=== PATIENT | female | born 2000 | race Caucasian/White ===

== ENCOUNTER 2022-05-05 15:41 | Outpatient (CLI) | payer OTHER, SELFPAY ==
--- NOTE | ~2022-05-05 | XR_ITS ---
XR lumbar spine 2-3V DATE: 05/05/2022 16:16 INDICATION: Low back pain TECHNIQUE: AP, lateral, coned lateral lumbosacral views COMPARISON: None FINDINGS: Normal alignment. No fracture or bone destruction or spondylolisthesis. The included lower thoracic and lumbar pedicles are intact. Lumbar and upper sacral interspaces appear well preserved. T he sacroiliac joints are intact. IMPRESSION: No significant abnormality Reviewed, dictated and finalized at location A. IMPRESSION: No significant abnormality
== END 2022-05-05 15:42 | disposition home or self-care (01) ==
PROVIDERS: PCP Family Medicine; Visit Provider Family Medicine
DX: M54.50 Low back pain, unspecified (principal)
CPT/HCPCS: 72100

== ENCOUNTER 2023-02-19 23:37 | Emergency (ER) | payer OTHER, SELFPAY ==
[2023-02-19 23:45] VITALS: BP 124/86; PULSE 78; RESP 18; TEMP 36.6; O2SAT 99
--- NOTE | 2023-02-19 23:54 | ED.DENTAL ---
HPI - Dental/Oral General Chief complaint: Dental/Oral Stated complaint: Toothache Time Seen by Provider: 02/19/23 23:52 Source: patient Mode of arrival: ambulatory Limitations: no limitations History of Present Illness HPI Narrative: Patient is a 22-year-old female with left upper mandible pain. Pain is of the left upper tooth that is cracked recently. MD Complaint: tooth pain Onset (ago): day(s) Duration: constant Severity: moderate Severity scale (1-10): 5 Relieving factors: nothing Exacerbating factors: chewing, cold, heat and drinking fluids Treatment prior to arrival: none Related Data Allergies Allergy/AdvReac Type Severity Reaction Status Date / Time No Known Allergies Allergy Verified 02/20/23 00:11 Review of Systems Review of Systems: All systems reviewed & are unremarkable except as noted in HPI and below Constitutional: Constitutional: Reports no additional constitutional complaints Eyes: Eyes: Reports no additional eye complaints ENT: Reports system reviewed and no additional complaints, except as documented Cardiovascular: Cardiovascular: Reports no additional cardiovascular complaints Respiratory: Respiratory: Reports no additional respiratory complaints Gastrointestinal: Gastrointestinal: Reports no additional gastrointestinal complaints Genitourinary: Genitourinary: Reports no additional female genitourinary complaints Musculoskeletal: Musculoskeletal: Reports no additional musculoskeletal complaints Integumentary/Breasts: Skin/Breast: Reports system reviewed and no additional complaints, except as docu Neurologic: Reports system reviewed and no additional complaints, except as documented Psychiatric: Psychiatric: Reports no additional psychiatric complaints Endocrine: Endocrine: Reports no additional endocrine complaints Hematologic/Lymphatic: Hematologic/Lymphatic: Reports no additional hematologic/lymphatic complaints Allergic/Immunologic: Allergic/Immunologic: Reports no additional allergic/immunologic complaints Exam Const: General: healthy appearing Nutritional Appearance: well nourished Orientation/consciousness: patient oriented x3 HENMT: Head: normal to inspection Ears: external ears normal Face/Nose/Sinus: Normal external nose present Other: Left upper molar 2nd to last has a crack mcc through the tooth with exposed dentition Eyes: Conjunctivae: conjunctivae normal Pupils: Equal, round and reactive pupils present EOM: EOMs intact bilaterally Neck: Neck: normal visual inspection Chest: Chest palpation & inspection: normal inspection of the chest Resp: Effort & Inspection: normal respiratory effort Auscultation: clear to auscultation bilaterally Cardio: Rate: regular rate Rhythm: regular rhythm Heart sounds: no murmurs GI: Inspection: non-distended Auscultation: normal bowel sounds : General: Yes bladder normal to palpation Back/Spine/Pelvis: Back: no CVA tenderness Skin: General skin exam: normal color Rashes: no rashes Wounds: no wounds Neuro: General: patient oriented x3, moves all extremities and no meningeal signs Extrem: General: normal to inspection Psych: Mental Status: mental status grossly normal Discharge Plan Discharge Clinical Impression: Mandible pain Patient Disposition: Home, Self-Care Condition: Stable Instructions: Antibiotic Form, Toothache (ED) Additional Instructions: please see a dentist as soon as possible Prescriptions: New amoxicillin 500 mg capsule 500 mg PO TID 10 Days Qty: 30 0RF indomethacin 25 mg capsule 25 mg PO TID PRN (Reason: pain) Qty: 20 0RF Rx Instructions: administer with food or milk Follow-up/Referrals: Jevon Stahl MD [Primary Care Provider] - Time of Disposition: 00:02
[2023-02-20] MEDS: AMOXICILLIN/CLAVULANATE K 875-125 MG TAB 1 TABLET PO (00:16)
[2023-02-20] MEDS: KETOROLAC (*BKC) 60 MG/2 ML VIAL IM (00:16)
[2023-02-20 00:34] VITALS: BP 120/74; PULSE 74; RESP 18; TEMP 36.6; O2SAT 98
== END 2023-02-20 00:40 | disposition home or self-care (01) ==
PROVIDERS: Emergency Provider Emergency Medicine; PCP Family Medicine
DX: R68.84 Jaw pain (principal)
CPT/HCPCS: 96372; 99283; A9270; J1885

== ENCOUNTER 2023-12-13 09:23 | Emergency (ER) | payer OTHER, SELFPAY ==
--- NOTE | ~2023-12-13 | CT_ITS ---
EXAMINATION: CT brain wo con DATE: 12/13/2023 09:56 INDICATION: Head injury. TECHNIQUE: Computed tomography (CT) of the head was performed without intravenous contrast. The mA wa s adjusted according to patient size. Iterative reconstruction technique was employed. The dose-lengt h product was 605.33 mGy-cm. COMPARISON: None FINDINGS: There is no intracranial hemorrhage, acute infarction, or abnormal intracranial mass lesion . The ventricles are normal in size. The orbits are normal. The paranasal sinuses are clear. The mast oid air cells are normal. IMPRESSION: 1. Normal brain. Reviewed, dictated and finalized at location A. IMPRESSION: 1. Normal brain.
[2023-12-13 09:26] VITALS: BP 132/83; PULSE 88; RESP 14; TEMP 36.8; O2SAT 100
--- NOTE | 2023-12-13 10:16 | ED.HEATRA ---
HPI - Head Injury General Chief complaint: Head Injury Stated complaint: head injury Time Seen by Provider: 12/13/23 09:27 Source: patient Mode of arrival: ambulatory Limitations: no limitations History of Present Illness HPI Narrative: 23-year-old otherwise healthy here with the complaints of having headache for past few days. Patient states that be correct fell on his left side of his head 3 days ago continues to have headache and nausea. Denies any LOC. MD Complaint: head injury Onset (ago): day(s) (5) Place: work Loss of Consciousness: no Location of injury: parietal (left) Severity: moderate Quality: aching Radiation: none Other Injuries: none Associated symptoms: nausea Related Data Allergies Allergy/AdvReac Type Severity Reaction Status Date / Time No Known Allergies Allergy Verified 12/13/23 09:28 Review of Systems Review of Systems: All systems reviewed & are unremarkable except as noted in HPI and below Eyes: Eyes: Reports no additional eye complaints ENT: Reports system reviewed and no additional complaints, except as documented Cardiovascular: Cardiovascular: Reports no additional cardiovascular complaints Respiratory: Respiratory: Reports no additional respiratory complaints Gastrointestinal: Gastrointestinal: Reports nausea Musculoskeletal: Musculoskeletal: Reports no additional musculoskeletal complaints Neurologic: Reports as per HPI Endocrine: Endocrine: Reports no additional endocrine complaints Exam Narrative: GENERAL: Well-appearing, well-nourished, and in no acute distress. HEAD: Normocephalic, atraumatic. EYES: PERRLA and EOMI. ENT: Nares clear, no rhinorrhea or epistaxis. Mucous membranes moist. NECK: Supple. CHEST: Clear to auscultation. No respiratory distress. HEART: Regular rate and rhythm. No murmur heard. Normal peripheral pulses. ABDOMEN: Soft, nontender, nondistended, normal active bowel sounds. EXTREMITIES: Normal range of motion. No edema. SKIN: Warm, dry, no rash. NEURO: No focal deficits. Alert and oriented x3. PSYCH: Normal mood and affect. Course Course Emergency Course: Inform patient about his CT findings advised him to take Tylenol ibuprofen for pain. Vital Signs Vital signs: Vital Signs Temperature 36.8 C 12/13/23 09:26 Pulse Rate 88 12/13/23 09:26 Respiratory Rate 14 12/13/23 09:26 Blood Pressure 132/83 12/13/23 09:26 Pulse Oximetry 100 12/13/23 09:26 Oxygen Delivery Room Air 12/13/23 09:26 Temperature 36.8 C 12/13/23 09:26 Pulse Rate 88 12/13/23 09:26 Respiratory Rate 14 12/13/23 09:26 Blood Pressure 132/83 12/13/23 09:26 Pulse Oximetry 100 12/13/23 09:26 Oxygen Delivery Room Air 12/13/23 09:26 MDM - Head Injury Imaging Data Radiologist's impression: ITS Impressions Head CT 12/13/23 10:08 IMPRESSION: 1. Normal brain. Discharge Plan Discharge Clinical Impression: Minor head injury Qualifiers: Encounter type: initial encounter Qualified Code(s): S09.90XA - Unspecified injury of head, initial encounter Patient Disposition: Home, Self-Care Condition: Stable Instructions: Head Injury (ED) Additional Instructions: Take Tylenol or ibuprofen for pain, follow-up with your primary doctor as needed. Prescriptions: No Action amoxicillin 500 mg capsule 500 mg PO TID 10 Days Qty: 30 0RF indomethacin 25 mg capsule 25 mg PO TID PRN (Reason: pain) Qty: 20 0RF Rx Instructions: administer with food or milk Follow-up/Referrals: Jevon Stahl MD [Primary Care Provider] - Time of Disposition: 10:20
[2023-12-13 10:28] VITALS: BP 123/79; PULSE 85; RESP 16; O2SAT 99
== END 2023-12-13 10:29 | disposition home or self-care (01) ==
PROVIDERS: Emergency Provider Family Medicine; PCP Family Medicine
DX: S09.90XA Unspecified injury of head, initial encounter (principal); W20.8XXA Other cause of strike by thrown, projected or falling object, initial encounter
CPT/HCPCS: 70450; 99284